=== PATIENT | female | born 1985 | race Caucasian/White ===

== ENCOUNTER 2016-11-28 13:07 | Inpatient (IN) | payer BC ==
[~2016-11-28] VITALS: Ht 157.5 cm; Wt 79.3 kg
[~2016-11-28 13:07] MED LIST: DOCUSATE SODIU100 MG PO; ENDOCET 5-3251 EACH PO; GLYBURIDE2.5 MG PO; GLYNASE3 MG PO; IBUPROFEN800 MG PO; IRON325 MG PO; MACROBID100 MG PO; NOHOMEMEDS; PRENATAL TABLE1 EAC3 PO; TUMS500 MG PO
[2016-11-28 14:37] LABS: HEMATOCRIT 41.2 % (36.0-46.0); MCH 28.5 PG (29.0-34.0); MCHC 32.8 G/DL (30.0-36.0); MCV 87.1 FL (83-99); MEAN PLAT.VOLUME 10.3 uM^3 (9.5-12.4); PLATELET COUNT 263 K/uL (156-360); RBC DIS.WIDTH-CV 12.5 % (11.8-14.6); RBC DIS.WIDTH-SD 40.3 % (39-53); RED BLOOD COUNT 4.73 M/uL (3.80-5.20); WHITE BLOOD COUNT 6.3 K/uL (4.1-10.2)
[2016-11-28 14:49] LABS: CHLORIDE 107 mEq/L (99-109); POTASSIUM 4.3 mEq/L (3.7-5.4); SODIUM 140 mEq/L (136-147)
[2016-11-28 14:52] LABS: GLUCOSE 92 mg/dL (70-99)
[2016-11-28 14:53] LABS: ANION GAP 9 MEQ/L (2-14)
[2016-11-28 14:54] LABS: TOTAL BILIRUBIN 0.9 mg/dL (0.0-1.0)
[2016-11-28 14:55] LABS: ALKALINE PHOSPHATASE 124 IU/L (3-129)
[2016-11-28 14:56] LABS: GFR ESTIMATE (CALCULATED) > 59 mL/min/
[2016-11-28 14:57] LABS: UREA NITROGEN (BUN) 13 mg/dL (9-23)
[2016-11-28 15:04] LABS: QUANTITATIVE HCG < 4.0 MIU/ML
[2016-11-28 22:31] VITALS: BP 139/92
[2016-11-29 01:21] LABS: HDL CHOLESTEROL 50 MG/DL (Desirable>=50); LDL CHOLESTEROL 109 mg/dL (Desirable<100); NON-HDL CHOLESTEROL 126 mg/dL (Desirable<160); TOTAL CHOLESTEROL 176 mg/dL (Desirable<200); TRIGLYCERIDES 84 MG/DL (Normal: <150)
[2016-11-29 03:35] VITALS: BP 119/75
[2016-11-29 07:14] LABS: Estimated Average Glucose 117 mg/dL (70-123); HEMOGLOBIN A1c (GLYCOHEMOGLOB) 5.7 % HGB (Below 5.7)
[2016-11-29 07:46] VITALS: BP 120/69
[2016-11-29 11:05] VITALS: BP 156/87
[2016-11-29 13:24] LABS: LYME DISEASE SEROLOGY SCREEN POSITIVE (NEGATIVE)
[2016-11-29 15:53] VITALS: BP 131/66
[2016-11-29] MEDS ORDERED: DOXYCYCLINE HY100 M3 PO (19:35)
[2016-11-29 19:39] VITALS: BP 135/73
== END 2016-11-29 20:13 | disposition home or self-care (01) | DRG 74 ==
LOC: EME 13:07 → EDOF 20:54 → 5SOUTH 20:54
PROVIDERS: Internal Medicine; Physician Assistant Medical
DX: G51.0 Bell's palsy (principal); R29.810 Facial weakness; R53.1 Weakness; R47.81 Slurred speech; E66.9 Obesity, unspecified; Z68.33 Body mass index [BMI] 33.0-33.9, adult; K21.9 Gastro-esophageal reflux disease without esophagitis
CPT/HCPCS: 70450; 70496; 70498; 70551; 80053; 80061; 83036; 84702; 85027; 86617 90; 86618; 93005; 93306; 99281; 99284; J1200; J1650; J1885; J2765; J2930; J7030